=== PATIENT | male | born 1980 ===

== ENCOUNTER 2018-02-05 20:38 | Emergency (ER) | payer OTHER ==
[2018-02-05 20:45] VITALS: TEMP 98.1
[2018-02-05 21:55] LABS: BASO % 0.3 % (0.0-2.0); EOS # 0.4 K/uL (0.0-0.7); EOS % 5.1 % (0.0-4.0); HEMOGLOBIN 15.2 g/dL (12.0-18.0); LYMPH # 3.7 K/uL (1.0-4.3); LYMPH % 42.6 % (20.0-40.0); MEAN CELL VOLUME 88.6 fl (80.0-94.0); MEAN CORPUSCULAR HEMOGLOBIN 30.4 pg (27.0-31.0); MEAN CORPUSCULAR HGB CONC 34.3 g/dL (33.0-37.0); MEAN PLATELET VOLUME 8.1 fl (7.2-11.7); MONO # 0.7 K/uL (0.0-0.8); MONO % 7.6 % (0.0-10.0); NEUT # 3.8 K/uL (1.8-7.0); NEUT % 44.4 % (50.0-75.0); NRBC % 0.1 % (0.0-0.0); RBC 5.01 Mil/uL (4.40-5.90); RED CELL DISTRIBUTION WIDTH 13.8 % (11.5-14.5); WHITE BLOOD COUNT 8.6 K/uL (4.8-10.8)
--- NOTE | 2018-02-05 22:04 | ED PDOC ---
Upper Extremity Pain/Injury Time Seen by Provider: 02/05/18 21:00 Chief Complaint (Nursing): Weakness/Neurological Deficit Chief Complaint (Provider): Left Arm Pain and Numbness History Per: Patient History/Exam Limitations: no limitations Onset/Duration Of Symptoms: Intermittent Episodes Current Symptoms Are (Timing): Still Present Quality: "Pain" Additional Complaint(s): 37 year old male with PMHx of cholesterol presents to the ER for an evaluation of left arm pain and numbness. Patient states the pain is intermittent and started 2 days ago that resolved spontaneously. The pain came back at 6am today. He denies headache, vomiting or fever. PMD: Aaron Gallegos Past Medical History Reviewed: Historical Data, Nursing Documentation, Vital Signs Vital Signs: Last Vital Signs Temp 98.1 F 02/05/18 20:44 Pulse 78 02/05/18 20:44 Resp 16 02/05/18 20:44 BP 125/83 02/05/18 20:44 Pulse Ox 100 02/05/18 20:44 - Medical History PMH: Hypercholesterolemia (not on medication) - Surgical History Surgical History: Appendectomy (2001) Other surgeries: lap band surgery - Family History Family History: States: Unknown Family Hx - Social History Current smoker - smoking cessation education provided: No Alcohol: None Drugs: Denies - Home Medications Home Medications: Ambulatory Orders Medication Instructions Recorded Omeprazole [PrilOSEC] 40 mg PO DAILY #30 ecc 02/28/14 Cetirizine Hydrochloride [Zyrtec] 10 mg PO DAILY #7 tab 07/22/14 RX: Prednisone 3 tab-cap PO QAM #12 tab 07/22/14 - Allergies Allergies/Adverse Reactions: Allergies Allergy/AdvReac Type Severity Reaction Status Date / Time No Known Allergies Allergy Verified 02/05/18 20:44 Review of Systems ROS Statement: Except As Marked, All Systems Reviewed And Found Negative Constitutional: Negative for: Fever Gastrointestinal: Negative for: Vomiting Musculoskeletal: Positive for: Arm Pain (left) Neurological: Positive for: Numbness. Negative for: Headache Physical Exam - Reviewed Nursing Documentation Reviewed: Yes Vital Signs Reviewed: Yes - Physical Exam Appears: Positive for: Non-toxic, No Acute Distress Head Exam: Positive for: ATRAUMATIC, NORMAL INSPECTION, NORMOCEPHALIC Skin: Positive for: Normal Color, Warm, Dry Eye Exam: Positive for: EOMI, Normal appearance, PERRL ENT: Positive for: Normal ENT Inspection Neck: Positive for: Normal, Painless ROM, Supple. Negative for: Decreased ROM Cardiovascular/Chest: Positive for: Regular Rate, Rhythm. Negative for: Murmur Respiratory: Positive for: Normal Breath Sounds. Negative for: Decreased Breath Sounds, Wheezing, Respiratory Distress Gastrointestinal/Abdominal: Positive for: Normal Exam, Soft. Negative for: Tenderness, Guarding, Rebound Back: Positive for: Normal Inspection. Negative for: L CVA Tenderness, R CVA Tenderness Extremity: Positive for: Normal ROM. Negative for: Tenderness, Pedal Edema, Deformity Neurologic/Psych: Positive for: Alert, service technician II-XII (intact), Oriented (x3), Gait (steady). Negative for: Motor/Sensory Deficits, Mood/Affect, Aphasia, Facial Droop - Laboratory Results Result Diagrams: 02/05/18 21:52 02/05/18 21:52 - ECG O2 Sat by Pulse Oximetry: 100 (RA) Pulse Ox Interpretation: Normal Medical Decision Making Medical Decision Making: Time: 2118 Initial Plan: Cervical Spine w/o Contrast [CT] Head w/o Contrast [CT] CMP CBC w/ Differential Reevaluation Time: 2247 EXAM: CT Head without Intravenous Contrast. CLINICAL HISTORY: Lt arm weakness TECHNIQUE: Axial computed tomography images of the head/brain without intravenous contrast. 808.74 mGy-cm CONTRAST: Without COMPARISON: None provided. FINDINGS: BRAIN No acute intraparenchymal hemorrhage. No mass lesion. No abnormal enhancement. No CT evidence for acute territorial infarct. No midline shift or extra-axial collections. VENTRICLES: No hydrocephalus. ORBITS: The orbits are unremarkable. SINUSES AND MASTOIDS: Bilateral ethmoid and maxillary sinusitis. BONES: No fracture. MISCELLANEOUS: Retrocerebellar arachnoid cyst. IMPRESSION: 1. Retrocerebellar arachnoid cyst. 2. Bilateral ethmoid and maxillary sinusitis. 3. No acute intracranial pathology. Time: 2321 EXAM: CT Cervical Spine Without IV contrast. CLINICAL HISTORY: Lt arm weakness TECHNIQUE: Axial computed tomography images of the cervical spine without intravenous contrast. Sagittal and coronal reformatted images were generated. 419.20 mGy-cm COMPARISON: None provided. FINDINGS: ALIGNMENT Bony alignment is anatomic. DEGENERATIVE CHANGES No significant canal stenosis or neural foraminal narrowing evident. Mild multilevel degenerative changes are noted. SOFT TISSUES The prevertebral soft tissues are within normal limits. BONES No acute fracture or aggressive appearing osseous lesion. IMPRESSION: Mild multilevel degenerative changes. No acute cervical spine abnormality. EKG: normal sinus rhythm, rate of 75bpm and complete right bundle branch block Patient aware of the finding on CT and follow up wit Dr. Gallegos. Neuro exam was repeated and it was normal. pt w stable gait, states he feels better and symptoms have resolved. Upon provider reevaluation patient is feeling better, is medically stable, and requires no further treatment in the ED at this time. Patient will be discharged home. Counseling was provided and all questions were answered regarding diagno sis and need for follow up with PMD. There is agreement to discharge plan. Return if symptoms persist or worsen. ----- Scribe Attestation: Documented by Fritz Lovell, acting as a scribe for Ishmael Alvarez MD. Provider Scribe Attestation: All medical record entries made by the Scribe were at my direction and personally dictated by me. I have reviewed the chart and agree that the record accurately reflects my personal performance of the history, physical exam, medical decision making, and the department course for this patient. I have also personally directed, reviewed, and agree with the discharge instructions and disposition. Disposition - Clinical Impression Clinical Impression: Left arm pain, Arm paresthesia, left - Patient ED Disposition Is Patient to be Admitted: No Counseled Patient/Family Regarding: Studies Performed, Diagnosis, Need For Followup - Disposition Referrals: Aaron Gallegos MD [Primary Care Provider] - Disposition: Routine/Home Disposition Time: 00:20 Condition: IMPROVED Additional Instructions: follow up with your primary doctor Dr Gallegos in 1-2 days for reevaluation and referral to neurologist you have been notified of your Cat scan findings return to the ED with any worsening or concerning symptoms Instructions: Paresthesias (DC) Forms: [employer] ([place])
[2018-02-05 22:09] LABS: ALBUMIN 3.9 g/dL (3.5-5.0); ALT/SGPT 38 U/L (21-72); AST/SGOT 26 U/L (17-59); BLOOD UREA NITROGEN 13 mg/dl (9-20); CALCIUM 9.2 mg/dL (8.4-10.2); GFR NON-AFRICAN AMERICAN > 60
[2018-02-06 10:37] VITALS: BP 108/71; PULSE 84; RESP 18
--- NOTE | 2018-02-06 11:16 | CT ---
Date of service: 02/05/2018 PROCEDURE: CT HEAD WITHOUT CONTRAST. HISTORY: left arm pain COMPARISON: None available. TECHNIQUE: Axial computed tomography images were obtained through the head/brain without intravenous contrast. Supplemental Coronal and Sagittal projections created and reviewed. Radiation dose: Total exam DLP = 808.74 mGy-cm. This CT exam was performed using one or more of the following dose reduction techniques: Automated exposure control, adjustment of the mA and/or kV according to patient size, and/or use of iterative reconstruction technique. FINDINGS: HEMORRHAGE: No intracranial hemorrhage. BRAIN: No mass effect or edema. No atrophy or chronic microvascular ischemic changes. VENTRICLES: Unremarkable. No hydrocephalus. CALVARIUM: Unremarkable. PARANASAL SINUSES: Unremarkable as visualized. No significant inflammatory changes. MASTOID AIR CELLS: Unremarkable as visualized. No inflammatory changes. OTHER FINDINGS: None. IMPRESSION: No acute intracranial abnormalities. No significant findings to account for the clinical presentation. Concordant results (preliminary interpretation) provided by [facility]. Procedure Completed: 21:57 Preliminary Report: Dictated and Authenticated: 22:48 Final Interpretation: 11:13. February 06, 2018
--- NOTE | 2018-02-06 11:18 | CT ---
Date of service: 02/05/2018 PROCEDURE: CT Cervical Spine without contrast HISTORY: intermittant left arm pain COMPARISON: None. TECHNIQUE: Axial computed tomography images were obtained of the cervical spine without the use of intravenous contrast. Coronal and sagittal reformatted images were created and reviewed. Radiation dose: Total exam DLP = 419.2 mGy-cm. This CT exam was performed using one or more of the following dose reduction techniques: Automated exposure control, adjustment of the mA and/or kV according to patient size, and/or use of iterative reconstruction technique. FINDINGS: VERTEBRAE: No fracture. Normal alignment. No destructive bony lesion. DISCS/SPINAL CANAL/NEURAL FORAMINA: No significant central canal or neural foraminal stenosis. Discs heights are grossly preserved. PARASPINAL SOFT TISSUES: Unremarkable. OTHER FINDINGS: None. IMPRESSION: Unremarkable CT of the cervical spine. Concordant results (preliminary interpretation) provided by [email or web address]. Procedure Completed: 22:03. Preliminary Report: Dictated and Authenticated: 22:53. Final Interpretation: 11:14. February 06, 2018
--- NOTE | 2018-02-06 19:14 | CARD ---
APPROVED REPORT Date of service: 02/06/2018 EKG Measurement Heart [id number] <Conclusion> Normal sinus rhythm Incomplete right bundle branch block Borderline ECG
[2018-02-07 09:17] VITALS: O2SAT 100
== END 2018-02-06 00:25 | disposition home or self-care (01) ==
LOC: H.ER 20:38
DX: R20.2 Paresthesia of skin (principal); E78.00 Pure hypercholesterolemia, unspecified; I45.10 Unspecified right bundle-branch block; G93.0 Cerebral cysts; J32.0 Chronic maxillary sinusitis; J32.2 Chronic ethmoidal sinusitis